=== PATIENT | male | born 1940 | race Caucasian/White ===

== ENCOUNTER 2016-07-29 12:09 | Day surgery (SDC) | payer MEDICARE ==
[2016-07-29] MEDS ORDERED: MIDAZOLAM HCL 2MG/2ML VIAL IV ONE (14:00)
[2016-07-29] MEDS ORDERED: PROPOFOL 10 MG/ML VIAL IV ONE (14:00)
[2016-07-29] MEDS ORDERED: LIDOCAINE 2% MDV (20MG/ML) 20ML VIAL IV ONE (14:00)
--- NOTE | 2016-08-03 11:22 | Operative Note ---
DATE OF SURGERY: 07/29/2016 OPERATION: COLONOSCOPY with cold forceps, cold snare, and hot snare polypectomies and hemoclip application for wound closure. PREOPERATIVE DIAGNOSIS: Screening. POSTOPERATIVE DIAGNOSES: 1. Multiple colon polyps. 2. Sigmoid diverticulosis. PROCEDURE: After informed consent was obtained from the patient, he was placed in the left lateral decubitus position in the endoscopy suite, sedated and monitored by the department of anesthesia. Digital rectal exam was unremarkable. A well-lubricated [id number] colonoscope was inserted into the rectum and advanced to the cecum. The cecum was noted by the ileocecal valve and appendiceal orifice. Preparation quality was good to excellent. There was a diminutive cecal polyp removed with a cold forceps. The remainder of the cecum and ascending colon were unremarkable. There was a diminutive transverse colon polyp removed with a cold forceps. The remainder of the transverse colon was unremarkable. In the descending colon, there were two 4-6 mm sessile polyps each removed with a cold snare with minimal bleeding noted. In the sigmoid colon, there were scattered diverticula as well as a sessile polyp approximately 4-5 mm in diameter removed with a cold snare. There was a somewhat pedunculated hyperemic polyp measuring approximately 6-7 mm removed with a polypectomy snare and ERBE Endocut current. A hemoclip was applied to the site for wound closure purposes as well. The polyp was retrieved. In the rectum, there were two 6-8 mm polyps each removed with a polypectomy snare and ERBE Endocut current. There was no bleeding at either site. The polyps were retrieved. J-turn views of the anorectum were unremarkable. The endoscope was straightened, the rectal ampulla deflated, and the endoscope was removed. RECOMMENDATIONS: I suggest the patient follow a soft, low-residue diet for the next 2 weeks and a high-fiber diet thereafter. He will require repeat exam in 1-3 years pending tissue histology. As always, thank you for allowing me to participate in the healthcare of your patients. CC: Dr. Grace ZIMMERMAN
== END 2016-07-29 14:05 | disposition home or self-care (01) ==
LOC: HOP 12:09
PROVIDERS: ATTEND Internal Medicine Gastroenterology
DX: Z12.11 Encounter for screening for malignant neoplasm of colon (principal); D12.0 Benign neoplasm of cecum; D12.3 Benign neoplasm of transverse colon; D12.4 Benign neoplasm of descending colon; D12.5 Benign neoplasm of sigmoid colon; K62.1 Rectal polyp; K57.30 Diverticulosis of large intestine without perforation or abscess without bleeding; I10 Essential (primary) hypertension

== ENCOUNTER 2018-07-06 07:24 | Day surgery (SDC) | payer MEDICARE ==
[2018-07-06] MEDS ORDERED: LIDOCAINE 2% MDV (20MG/ML) 20ML VIAL IV ONE (07:25)
[2018-07-06] MEDS ORDERED: PROPOFOL 10 MG/ML VIAL IV ONE (07:25)
[2018-07-06] MEDS ORDERED: 0.9 % SODIUM CHLORIDE 1000ML 500 ML IV ONE (07:50)
[2018-07-06] MEDS ORDERED: LIDOCAINE 2% MDV (20MG/ML) 20ML VIAL SQ ONE (09:01)
[2018-07-06] MEDS ORDERED: TETRACAINE HCL 0.5% 15 ML OPTH BTL OPTH ONE (09:01)
[2018-07-06] MEDS ORDERED: EPINEPHRINE 1 MG/ML AMPUL IJ ONE (09:02)
[2018-07-06] MEDS ORDERED: NEOM/BACI/POLY/HC 3.5 GM OPTH OINT OPTH ONE (09:02)
[2018-07-06] MEDS ORDERED: SODIUM CHLORIDE IV ONE (09:23)
[2018-07-06] MEDS ORDERED: CIPROFLOXACIN HCL 0.0015 GM, PHENYLEPHRINE HCL 0.05 GM, KETOROLAC TROMETHAMINE 0.000625 GM MC ONE ×5 (13:00)
--- NOTE | 2018-07-12 19:57 | Operative Note ---
DATE OF PROCEDURE: 07/06/18. PREOPERATIVE DIAGNOSIS: 1. Nuclear sclerotic and posterior subcapsular cataract, left eye. 2. Small pupil left eye. POSTOPERATIVE DIAGNOSIS: 1. Nuclear sclerotic and posterior subcapsular cataract, left eye. OPERATION: 1. Phacoemulsification of cataractous lens with implantation of intraocular lens. 2. Sphincterotomy to enlarge poorly-dilating pupil as part of the cataract surgery. LENS IMPLANT USED: [employer] Richie Model PCB00 + 22.5 diopters. COMPLICATIONS: None. PROCEDURE IN DETAIL: Following a retrobulbar and facial block, the patient was prepped and draped in the usual fashion for eye surgery. A lid speculum was placed in the left eye after which a 2.4 mm tunnel wound was placed at the temporal limbus and dissected into clear cornea. A paracentesis was placed at 2 o'clock hours to the left and right of the initial incision and the chamber deepened with Viscoelastic. The keratome was then used to enter the anterior chamber after which the continuous circular capsulorrhexis was accomplished without difficulty using a bent needle and a Utrata forceps. Hydrodissection and hydrodelineation of the lens was performed after which the nucleus of the lens was removed using the Phaco handpiece in the [id number] technique. The residual cortical material was irrigated and aspirated from the eye after which the bag and chamber were re-examined. The bag was re-inflated with Viscoelastic and the intraocular lens injected into the capsular bag where it centered well. The Viscoelastic was then copiously irrigated and aspirated from the eye after which the temporal tunnel wound and paracentesis were hydrated and the wounds were examined. They were noted to be watertight. The lid speculum was removed from the eye and the eye patched and shielded. The patient was transferred to the recovery room in satisfactory condition and given an appointment to be reexamined in the clinic later today or as directed by Dr. Mcclure. ADDENDUM: Sphincterotomy was created using bimanual instrumentation to enlarge the pupil prior to the creation of capsulorrhexis. JOB NUMBER: [id number] MTDD
== END 2018-07-06 09:45 | disposition home or self-care (01) ==
LOC: SUR 07:24
PROVIDERS: ATTEND Ophthalmology
DX: H25.12 Age-related nuclear cataract, left eye (principal); H57.03 Miosis; I10 Essential (primary) hypertension; I48.91 Unspecified atrial fibrillation
CPT/HCPCS: J0171; J7030

== ENCOUNTER 2018-07-20 07:14 | Day surgery (SDC) | payer MEDICARE ==
[2018-07-20] MEDS ORDERED: PROPOFOL 10 MG/ML VIAL IV ONE (07:15)
[2018-07-20] MEDS ORDERED: LIDOCAINE 2% MDV (20MG/ML) 20ML VIAL IV ONE (07:15)
[2018-07-20] MEDS ORDERED: LIDOCAINE 2% MDV (20MG/ML) 20ML VIAL SQ ONE (09:12)
[2018-07-20] MEDS ORDERED: NEOM/BACI/POLY/HC 3.5 GM OPTH OINT OPTH ONE (09:12)
[2018-07-20] MEDS ORDERED: TETRACAINE HCL 0.5% 15 ML OPTH BTL OPTH ONE (09:13)
[2018-07-20] MEDS ORDERED: EPINEPHRINE 1 MG/ML AMPUL IO ONE (09:14)
[2018-07-20] MEDS ORDERED: RINGERS SOLUTION,LACTATED 1,000 ML IV ONE ×2 (09:35)
--- NOTE | 2018-07-20 19:00 | Operative Note ---
DATE OF PROCEDURE: 07/20/18. PREOPERATIVE DIAGNOSIS: Nuclear sclerotic cataract, right eye. POSTOPERATIVE DIAGNOSIS: Nuclear sclerotic cataract, right eye. OPERATION: Phacoemulsification of cataractous lens with implantation of intraocular lens. LENS IMPLANT USED: [employer] Richie Model PCB00 + 23.0 diopters. COMPLICATIONS: None. PROCEDURE IN DETAIL: Following a retrobulbar and facial block, the patient was prepped and draped in the usual fashion for eye surgery. A lid speculum was placed in the right eye after which a 2.4 mm tunnel wound was placed at the temporal limbus and dissected into clear cornea. A paracentesis was placed at 2 o'clock hours to the left and right of the initial incision and the chamber deepened with Viscoelastic. The keratome was then used to enter the anterior chamber after which the continuous circular capsulorrhexis was accomplished without difficulty using a bent needle and a Utrata forceps. Hydrodissection and hydrodelineation of the lens was performed after which the nucleus of the lens was removed using the Phaco handpiece in the [id number] technique. The residual cortical material was irrigated and aspirated from the eye after which the bag and chamber were re-examined. The bag was re-inflated with Viscoelastic and the intraocular lens injected into the capsular bag where it centered well. The Viscoelastic was then copiously irrigated and aspirated from the eye after which the temporal tunnel wound and paracentesis were hydrated and the wounds were examined. They were noted to be watertight. The lid speculum was removed from the eye and the eye patched and shielded. The patient was transferred to the recovery room in satisfactory condition and given an appointment to be reexamined in the clinic later today or as directed by Dr. Mcclure. JOB NUMBER: [id number] [facility]
== END 2018-07-20 10:00 | disposition home or self-care (01) ==
LOC: SUR 07:14
PROVIDERS: ATTEND Ophthalmology
DX: H25.11 Age-related nuclear cataract, right eye (principal); I10 Essential (primary) hypertension; I48.91 Unspecified atrial fibrillation; M19.90 Unspecified osteoarthritis, unspecified site
CPT/HCPCS: J0171; J7120